=== PATIENT | male | born 1940 | race Caucasian/White ===

== ENCOUNTER 2018-09-13 11:40 | Outpatient (CLI) | payer MEDICARE, BC ==
[2018-09-13 12:40] LABS: BASOPHILS % (AUTO) 0.4 % (0-1); EOSINOPHILS # (AUTO) 0.1 X10'3 (0-0.9); EOSINOPHILS % (AUTO) 0.6 % (0-6); HEMATOCRIT 40.6 % (42.0-52.0); HEMOGLOBIN 14.1 g/dl (14.0-17.9); LYMPHOCYTES # (AUTO) 0.4 X10'3 (1.1-4.8); LYMPHOCYTES % (AUTO) 3.8 % (21-51); MEAN CORPUSCULAR HEMOGLOBIN 32.1 PG (27.0-31.0); MEAN CORPUSCULAR HGB CONC 34.6 g/dL (33.0-36.5); MEAN CORPUSCULAR VOLUME 92.8 FL (78-98); MEAN PLATELET VOLUME 7.1 FL (7.4-10.4); MONOCYTES # (AUTO) 0.5 X10'3 (0-0.9); MONOCYTES % (AUTO) 5.3 % (2-12); NEUTROPHILS # (AUTO) 8.9 X10'3 (1.8-7.7); NEUTROPHILS % (AUTO) 89.9 % (42-75); PLATELET COUNT 231 X10'3 (140-440); RED BLOOD COUNT 4.37 X10'6 (4.70-6.10); RED CELL DISTRIBUTION WIDTH 13.1 % (11.5-14.5)
[2018-09-13 12:53] LABS: ALANINE AMINOTRANSFERASE 31 U/L (12-78); ALBUMIN 3.7 G/DL (3.4-5.0); ALKALINE PHOSPHATASE 127 IU/L (46-116); ANION GAP 8 (8-16); ASPARTATE AMINO TRANSFERASE 20 U/L (10-37); BILIRUBIN,TOTAL 1.1 MG/DL (0.1-1.0); BLOOD UREA NITROGEN 12 MG/DL (7-18); BUN/CREATININE RATIO 14.3 (5.4-32.0); CHLORIDE 102 MMOL/L (99-107); CREATININE 0.84 MG/DL (0.60-1.10); GLUCOSE 114 MG/DL (70-104); POTASSIUM 3.9 MMOL/L (3.5-5.1); SODIUM 137 MMOL/L (135-145); TOTAL CARBON DIOXIDE 26.8 MMOL/L (24-32); TOTAL PROTEIN 7.3 G/DL (6.4-8.2); eGFR 88 ML/MIN
== END 2018-09-13 23:59 | disposition home or self-care (01) ==
LOC: LAB 11:40
PROVIDERS: ATTEND Otolaryngology
DX: D69.1 Qualitative platelet defects (principal)
CPT/HCPCS: 36415; 80053; 85025

== ENCOUNTER 2019-09-17 06:06 | Day surgery (SDC) | payer MEDICARE, BC ==
[2019-09-11 14:49] LABS: BASOPHILS % (AUTO) 0.8 % (0-1); EOSINOPHILS # (AUTO) 0.4 X10'3 (0-0.9); EOSINOPHILS % (AUTO) 5.8 % (0-6); LYMPHOCYTES # (AUTO) 0.6 X10'3 (1.1-4.8); LYMPHOCYTES % (AUTO) 9.3 % (21-51); MEAN CORPUSCULAR HEMOGLOBIN 31.9 PG (27.0-31.0); MEAN CORPUSCULAR HGB CONC 33.4 g/dL (33.0-36.5); MEAN CORPUSCULAR VOLUME 95.4 FL (78-98); MEAN PLATELET VOLUME 6.9 FL (7.4-10.4); MONOCYTES # (AUTO) 0.7 X10'3 (0-0.9); NEUTROPHILS # (AUTO) 4.3 X10'3 (1.8-7.7); NEUTROPHILS % (AUTO) 72.1 % (42-75); PRE OP HEMATOCRIT 39.2 % (42.0-52.0); PRE OP HEMOGLOBIN 13.1 g/dL (14.0-17.9); PRE OP PLATELET COUNT 208 X10'3 (140-440); RED BLOOD COUNT 4.11 X10'6 (4.70-6.10); RED CELL DISTRIBUTION WIDTH 13.4 % (11.5-14.5)
[2019-09-11 15:03] LABS: PRE OP INR 1.1 INR; PRE OP PROTIME 10.9 SECONDS (9.0-12.0)
[2019-09-11 15:05] LABS: ALBUMIN 3.5 G/DL (3.4-5.0); ALKALINE PHOSPHATASE 116 IU/L (46-116); BLOOD UREA NITROGEN 8 MG/DL (7-18); CALCIUM 8.6 MG/DL (8.5-10.1); CHLORIDE 108 MMOL/L (99-107); CREATININE 0.89 MG/DL (0.60-1.10); PRE OP ALT 25 U/L (30-65); PRE OP ANION GAP 4 (8-16); PRE OP AST 18 U/L (10-37); PRE OP BILIRUB, TOTAL 0.8 MG/DL (0.0-1.0); PRE OP GLUCOSE 89 MG/DL (70-104); PRE OP POTASSIUM 3.9 MMOL/L (3.4-5.1); PRE OP SODIUM 141 MMOL/L (135-145); TOTAL CARBON DIOXIDE 28.8 MMOL/L (24-32); eGFR 82 ML/MIN
[2019-09-17] VITALS (15 sets, daily range): BP systolic 81–132; BP diastolic 51–80
[~2019-09-17] VITALS: Ht 177.8 cm; Wt 68.5 kg
[~2019-09-17 06:06] MED LIST: ALBU8HFA PO; ATOR40TA7 PO; BUDE10.2 INH; FLO0.4C PO; MULT-1085 PO; OMEP-50 PO; famotidine 20mg tablet PO ONE; ringers solution, lacted 1,000 ML IV SCH
[2019-09-17] MEDS ORDERED: LIDOcaine 1% W/epiNEPHrine 1:100,000 20ml vial ONE (06:39)
[2019-09-17] MEDS ORDERED: mupirocin 2% ointment 22GM ONE (06:39)
[2019-09-17] MEDS ORDERED: BUPIVAcaine 0.5% W/EPI /PF 30ml vial ONE (06:39)
[2019-09-17] MEDS ORDERED: cocaine 4% topical solution 4ml bottle ONE (06:39)
[2019-09-17] MEDS ORDERED: cefTAZidime 1gm inj ONE (06:39)
[2019-09-17] MEDS ORDERED: oxymetazoline 15 ML nasal spray NS ONE (06:39)
[2019-09-17] MEDS ORDERED: methylPREDNISolone acetate 80mg/ml inj**IM only ONE (06:39)
[2019-09-17] MEDS ORDERED: epiNEPHrine 1 mg/ml inj ONE (06:50)
[2019-09-17] MEDS ORDERED: gelatin sponge, absorbable (Gelfoam 100) sponge TP ONE (06:50)
[2019-09-17] MEDS ORDERED: ofloxacin 0.3% 5ml otic drops RIGHT EAR ONE (06:55)
[2019-09-17] MEDS ORDERED: ringers solution, lacted 1,000 ML IV SCH (07:46)
[2019-09-17] MEDS ORDERED: fentaNYL/PF 50MCG/1 ML 2ML syringe IV PRN ×2 (07:50)
[2019-09-17] MEDS ORDERED: morphine 4 MG/ML inj SYRINge IV PRN (07:50)
[2019-09-17] MEDS ORDERED: morphine 2 MG/ML inj. syringe IV PRN (07:50)
[2019-09-17] MEDS ORDERED: ondansetron/PF 4mg/2ml inj IV PRN (07:50)
[2019-09-17] MEDS ORDERED: hydrALAZINE 20mg/ml inj. IV PRN (07:50)
[2019-09-17] MEDS ORDERED: labetalol 20mg/4ml (5mg/ml) syringe IV PRN (07:50)
[2019-09-17] MEDS ORDERED: Cipro HC otic suspension 10ML bottle RIGHT EAR ONE (07:55)
[2019-09-17] MEDS ORDERED: fentaNYL/PF 50MCG/1 ML 2ML syringe ONE (07:58)
[2019-09-17] MEDS ORDERED: midazolam 2 mg/2 ml injection ONE (07:58)
[2019-09-17] MEDS ORDERED: sevoflurane 250ml liquid IH ONE (07:58)
[2019-09-17] MEDS ORDERED: LIDOcaine 2% (20mg/ml) 5ml vial ONE (07:59)
[2019-09-17] MEDS ORDERED: propofol inj 20 ML IV ONE (07:59)
[2019-09-17] MEDS ORDERED: ondansetron/PF 4mg/2ml inj ONE (07:59)
[2019-09-17] MEDS ORDERED: dexamethasone sod phosphate 4mg/ml inj. ONE (07:59)
--- NOTE | 2019-09-17 08:34 | NUR ---
RECEIVED FROM OR VIA [facility] ACCOMPANIED BY ANESTHESIOLOGIST DR BAUTISTA, REPORT GIVEN. 20 GAUGE PIV R WRIST PATENT AND RUNNING LR AT 100 ML/HR. PT DROWSY BUT AROUSES WITH NO COMPLAINT OF PAIN AT THIS TIME. SKIN PINK AND WARM WITH GOOD CAP REFILL. NO DRAINAGE FROM R EAR, RESTING COMFORTABLY.
--- NOTE | 2019-09-17 10:44 | NUR ---
20 GAUGE PIV R WRIST DC/D CATHETER TIP INTACT.PT AWAKE AND ALERT WITH NO COMPLAINT OF PAIN AT THIS TIME. SKIN PINK AND WARM WITH GOOD CAP REFILL. NO DRAINAGE FROM R EAR, COTTENBALL RIGHT EAR CDI. PT ABLE TO TOLERATE FLUIDS, DRESS SELF, AMBULATE AND VOID. VSS. DISCHARGE INSTRUCTIONS GIVEN AND PT VERBALIZED UNDERSTANDING. TRANSPORTED VIA WHEELCHAIR TO SPOUSE IN PRIVATE VEHICLE TO HOME.
== END 2019-09-17 10:44 | disposition home or self-care (01) ==
LOC: PAS 06:06
PROVIDERS: ATTEND Otolaryngology
DX: H65.491 Other chronic nonsuppurative otitis media, right ear (principal); H74.01 Tympanosclerosis, right ear; J44.9 Chronic obstructive pulmonary disease, unspecified; Z79.899 Other long term (current) drug therapy; Z79.01 Long term (current) use of anticoagulants; Z11.59 Encounter for screening for other viral diseases; Z96.653 Presence of artificial knee joint, bilateral; Z98.890 Other specified postprocedural states; Z86.73 Personal history of transient ischemic attack (TIA), and cerebral infarction without residual deficits; Z88.2 Allergy status to sulfonamides; Z88.8 Allergy status to other drugs, medicaments and biological substances; Z85.46 Personal history of malignant neoplasm of prostate; K21.9 Gastro-esophageal reflux disease without esophagitis; Z87.448 Personal history of other diseases of urinary system
CPT/HCPCS: 36415; 69436; 69450; 80053; 82948; 85025; 85576; 85610; 85730; 87635; 93005; C9803; J0171; J0713; J1040; J1100; J2001; J2250; J2405; J2704; J3010; U0003; A4618; J7120

== ENCOUNTER 2019-12-03 05:04 | Day surgery (SDC) | payer OTHER ==
[2019-11-28 12:02] LABS: BASOPHILS % (AUTO) 0.6 % (0-1); EOSINOPHILS # (AUTO) 0.4 X10'3 (0-0.9); EOSINOPHILS % (AUTO) 5.2 % (0-6); HEMATOCRIT 38.7 % (42.0-52.0); HEMOGLOBIN 13.3 g/dl (14.0-17.9); LYMPHOCYTES # (AUTO) 0.6 X10'3 (1.1-4.8); LYMPHOCYTES % (AUTO) 8.1 % (21-51); MEAN CORPUSCULAR HEMOGLOBIN 32.6 PG (27.0-31.0); MEAN CORPUSCULAR HGB CONC 34.4 g/dL (33.0-36.5); MEAN CORPUSCULAR VOLUME 94.6 FL (78-98); MEAN PLATELET VOLUME 6.7 FL (7.4-10.4); MONOCYTES # (AUTO) 0.6 X10'3 (0-0.9); MONOCYTES % (AUTO) 8.6 % (2-12); NEUTROPHILS # (AUTO) 5.7 X10'3 (1.8-7.7); NEUTROPHILS % (AUTO) 77.5 % (42-75); PLATELET COUNT 228 X10'3 (140-440); RED BLOOD COUNT 4.09 X10'6 (4.70-6.10); RED CELL DISTRIBUTION WIDTH 13.7 % (11.5-14.5); WHITE BLOOD COUNT 7.4 X10'3 (4.5-11.0)
[2019-11-28 12:09] LABS: ALBUMIN 3.4 G/DL (3.4-5.0); ANION GAP 5 (8-16); BLOOD UREA NITROGEN 9 MG/DL (7-18); BUN/CREATININE RATIO 11.8 (5.4-32.0); CALCIUM 8.8 MG/DL (8.5-10.1); CHLORIDE 104 MMOL/L (99-107); CREATININE 0.76 MG/DL (0.60-1.10); GLUCOSE 89 MG/DL (70-104); POTASSIUM 3.6 MMOL/L (3.5-5.1); SODIUM 139 MMOL/L (135-145); TOTAL CARBON DIOXIDE 30.3 MMOL/L (24-32); eGFR > 90 ML/MIN
[2019-11-28 12:13] LABS: PARTIAL THROMBOPLASTIN TIME 28 SECONDS (22-32)
[2019-12-03] VITALS (9 sets, daily range): BP systolic 108–137; BP diastolic 53–74
[~2019-12-03] VITALS: Ht 177.8 cm; Wt 69.0 kg
[~2019-12-03 05:04] MED LIST changes: -famotidine 20mg tablet PO ONE; -ringers solution, lacted 1,000 ML IV SCH
[2019-12-03] MEDS ORDERED: LORazepam 0.5 MG tablet PO PRN (05:30)
[2019-12-03] MEDS ORDERED: diphenhydrAMINE 25mg capsule PO PRN (05:30)
[2019-12-03] MEDS ORDERED: normal saline 1,000 ML IV SCH (05:30)
[2019-12-03] MEDS ORDERED: PRED10TA PO (05:38)
[2019-12-03] MEDS ORDERED: midazolam 2 mg/2 ml injection ONE (06:01)
[2019-12-03] MEDS ORDERED: iohexol 350MG/ML 100ml bottle IV ONE (06:02)
[2019-12-03] MEDS ORDERED: fentaNYL/PF 50MCG/1 ML 2ML syringe ONE (06:02)
[2019-12-03] MEDS ORDERED: LIDOcaine 1% (10mg/ml)w/preservative injection 20ml MDV ONE (06:02)
[2019-12-03] MEDS ORDERED: nitroGLYCERIN-Tridil 50MG/D5W 250 ML IV ONE (06:04)
[2019-12-03] MEDS ORDERED: verapamil 2.5 mg/ml inj IV ONE (06:04)
[2019-12-03] MEDS ORDERED: heparin 1,000unit/ml 10ml vial 10 ML ONE (06:04)
[2019-12-03] MEDS ORDERED: HYDROcodone/acetaminophen 10/325mg tab PO PRN (07:35)
[2019-12-03] MEDS ORDERED: nitroGLYCERIN 0.4mg SUBLingual tab SL PRN (07:35)
[2019-12-03] MEDS ORDERED: OXAZEpam 15mg capsule PO PRN (07:35)
[2019-12-03] MEDS ORDERED: HYDROcodone/acetaminophen 5mg/325mg tablet PO PRN (07:35)
[2019-12-03] MEDS ORDERED: ondansetron/PF 4mg/2ml inj IV PRN (07:35)
== END 2019-12-03 10:30 | disposition home or self-care (01) ==
LOC: SSTAY O 05:04
PROVIDERS: ATTEND Internal Medicine Interventional Cardiology
DX: I35.0 Nonrheumatic aortic (valve) stenosis (principal); I25.10 Atherosclerotic heart disease of native coronary artery without angina pectoris; J44.9 Chronic obstructive pulmonary disease, unspecified; I65.23 Occlusion and stenosis of bilateral carotid arteries; E78.49 Other hyperlipidemia; Z86.73 Personal history of transient ischemic attack (TIA), and cerebral infarction without residual deficits; Z79.899 Other long term (current) drug therapy; Z88.8 Allergy status to other drugs, medicaments and biological substances
CPT/HCPCS: 36415; 80048; 85025; 85610; 85730; 93005; 93454; 99152; 99153; C1769; C1894; J1644; J2001; J2250; J3010; J7030; Q0163; Q9967; 93458; A4620; A5120; J3490